=== PATIENT | female | born 1955 | race Caucasian/White ===

== ENCOUNTER → 2018-05-11 | Outpatient (CLI) | payer OTHER ==
--- NOTE | 2018-05-12 09:48 | MM ---
Reason for exam: screening (asymptomatic). Last mammogram was performed 3 years and 8 months ago. History: Patient is postmenopausal. Family history of breast cancer in aunt at age 70 and breast cancer in cousin. Physical Findings: A clinical breast exam by your physician is recommended on an annual basis and results should be correlated with mammographic findings. MG Screening Mammo w CAD Bilateral CC and MLO view(s) were taken. Prior study comparison: September 19, 2014, bilateral MG screening mammo w CAD. March 16, 2013, bilateral digital screening mammo w/CAD. There are scattered fibroglandular densities. No suspicious abnormality. No significant changes when compared with prior studies. ASSESSMENT: Negative, BI-RAD 1 RECOMMENDATION: Routine screening mammogram of both breasts in 1 year.
== END ==
LOC: RADMAMWWP 08:26
PROVIDERS: ATTEND Obstetrics & Gynecology Obstetrics
DX: Z12.31 Encounter for screening mammogram for malignant neoplasm of breast (principal)
CPT/HCPCS: 77067

== ENCOUNTER → 2022-03-19 | Outpatient (CLI) | payer MEDICARE ==
--- NOTE | 2022-03-20 11:33 | MM ---
Reason for exam: screening (asymptomatic). Last mammogram was performed 3 years and 10 months ago. History: Patient is postmenopausal. Family history of breast cancer in aunt at age 70 and breast cancer in cousin. Physical Findings: A clinical breast exam by your physician is recommended on an annual basis and results should be correlated with mammographic findings. MG 3D Screening Mammo W/Cad Bilateral CC and MLO view(s) were taken. Prior study comparison: May 11, 2018, bilateral MG screening mammo w CAD. There are scattered fibroglandular densities. There is no discrete abnormality. No significant changes when compared with prior studies. ASSESSMENT: Negative, BI-RAD 1 RECOMMENDATION: Routine screening mammogram of both breasts in 1 year.
== END | disposition home or self-care (01) ==
LOC: RADMAMWWP 10:00
PROVIDERS: ATTEND Family Medicine
DX: Z12.31 Encounter for screening mammogram for malignant neoplasm of breast (principal); Z78.0 Asymptomatic menopausal state; Z80.3 Family history of malignant neoplasm of breast
CPT/HCPCS: 77063; 77067

== ENCOUNTER 2024-10-17 09:03 | Day surgery (SDC) | payer MEDICARE ==
[2024-10-13 14:44] VITALS: BMI 22.0
[~2024-10-17 09:03] MED LIST: LIDOCAINE 1% (10MG/ML) FOR IV START INTRADERMA PRN
[2024-10-17] MEDS: IV FLUID CONTINUATION 1,000 ML IV ONE (09:14)
[2024-10-17] MEDS: LACTATED RINGERS 1,000 ML IV SCH (09:30)
[2024-10-17 09:32] VITALS: TEMP 98.4
[2024-10-17] MEDS ORDERED: PROPOFOL 10 MG/ML 20 ML VIAL IV ONE (09:47)
[2024-10-17] MEDS ORDERED: ePHEDrine 50 MG/ML 1 ML VIAL ONE (09:47)
--- NOTE | 2024-10-17 10:04 | P.PCN ---
Date of Procedure: 10/17/24 Preoperative Diagnosis: Screening for colon cancer Postoperative Diagnosis: Diverticulosis Cecal inflammation Procedure(s) Performed: Colonoscopy with biopsy Anesthesia: SHANTE Surgeon: Antony Meyer Pathology: other (Cecal biopsy) Condition: stable Disposition: same day Indications for Procedure: 69-year-old female presents today for screening colonoscopy. Denies any blood in her stool. Denies any history of colon polyps. No family history of colon cancer. Plan for colonoscopy. Risks, benefits and alternatives were provided to the patient. All questions answered. Operative Findings: Inflammatory changes of the cecum Diverticulosis Description of Procedure: The patient was brought to the endoscopy suite and placed in left lateral decubitus position and adequate sedation was achieved using conscious sedation. A digital rectal exam was performed and mild internal hemorrhoids were palpated. An endoscope was then placed in the rectum and advanced to the cecum as identified by landmarks including the appendiceal orifice and the ileocecal valve. The prep was good. The colonoscope was then slowly withdrawn, examining for any mucosal abnormalities. The cecum, ascending, transverse, descending and sigmoid colon were visualized adequately. No large inflammatory masses were noted throughout the colon. No obvious polyps. The cecum was noted to have some inflammatory changes that were mild and biopsies were taken. Moderate diverticulosis was noted in the sigmoid colon. No evidence of bleeding. No evidence of stenosis or stricturing. Retroflexion was performed in the rectum and mild internal hemorrhoids were visible. Excess air was removed, the colonoscope withdrawn and the procedure terminated. The patient was then transferred to recovery unit in stable condition. Repeat colonoscopy should be performed in 5 years.
[2024-10-17 10:13] VITALS: PULSE 99
[2024-10-17 10:46] VITALS: BP 110/72; RESP 16
== END 2024-10-17 10:48 | disposition home or self-care (01) ==
LOC: ORWHC2ENDO 09:03
PROVIDERS: ATTEND Surgery
DX: Z12.11 Encounter for screening for malignant neoplasm of colon (principal); K57.30 Diverticulosis of large intestine without perforation or abscess without bleeding; I10 Essential (primary) hypertension; Z79.899 Other long term (current) drug therapy
CPT/HCPCS: 88305; 88342; 88341; 45380; J2704